=== PATIENT | female | born 1970 | race Caucasian/White ===

== ENCOUNTER 2022-12-04 18:19 | Emergency (ER) | payer OTHER ==
[~2022-12-04] VITALS: Ht 170.2 cm; Wt 69.9 kg
--- NOTE | 2022-12-04 18:35 | NUR ---
[id number] FOR VOMITING S/P ALCOHOL CONSUMPTION AT A [facility]. PT ADMITS TO CONSUMING ALCOHOL.
--- NOTE | 2022-12-04 19:00 | NUR ---
RESTING COMFORTABLY . NO SIGNS AND SYMPTOMS OF DISTRESS. STABLE VITAL SIGNS
--- NOTE | 2022-12-04 19:34 | NUR ---
BS 69mg/dl. APPLE JUICE OFFERED.
[2022-12-04] MEDS ORDERED: ONDANSETRON HCL/PF - ER 4 MG/2 ML VIAL IV ONE (20:00)
[2022-12-04] MEDS ORDERED: ONDANSETRON HCL/PF 4 MG/2 ML VIAL ONE (20:16)
--- NOTE | 2022-12-04 20:18 | NUR ---
PATIENT REFUSED ZOFRAN, STATES NOT NAUSEATED ANYMORE
--- NOTE | 2022-12-04 20:18 | NUR ---
SISTER JOSE AT BEDSIDE
--- NOTE | 2022-12-04 20:31 | NUR ---
GIVEN ORANGE JUICE, TOLERATED WELL
--- NOTE | 2022-12-04 20:46 | NUR ---
Patient discharged to home in stable condition. Written and verbal after care instructions given. Patient verbalizes understanding of instruction.
[2022-12-04 20:47] VITALS: BP 102/64; TEMP 98
== END 2022-12-04 20:47 | disposition home or self-care (01) ==
LOC: ER 18:33
DX: F10.129 Alcohol abuse with intoxication, unspecified (principal); E11.9 Type 2 diabetes mellitus without complications; Z60.2 Problems related to living alone; Y90.9 Presence of alcohol in blood, level not specified
CPT/HCPCS: 99283; 82962; J2405 ×2